=== PATIENT | male | born 2000 | race Caucasian/White ===

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

== ENCOUNTER 2019-01-28 05:39 | Emergency (ER) | payer OTHER | END 2019-01-28 08:20 | disposition home or self-care (01) | LOC: JER 05:39 ==

== ENCOUNTER 2021-03-11 20:19 | Emergency (ER) | payer OTHER ==
[2021-03-11 20:42] VITALS: BP 150/84; PULSE 97; TEMP 98.8; BMI 19.5
[2021-03-13 14:13] LABS: SARS-CoV-2 NAA Detected (Not Detected)
== END 2021-03-11 22:56 | disposition home or self-care (01) ==
LOC: JER 20:19
DX: U07.1 COVID-19 (principal)
CPT/HCPCS: 99283-25; C9803; U0003; U0005

== ENCOUNTER 2022-07-10 11:37 | Emergency (ER) | payer OTHER ==
[2022-07-10 12:24] VITALS: BP 119/72; PULSE 60; RESP 16; TEMP 98.2; BMI 22.7
[2022-07-10] MEDS ORDERED: KETOROLAC TROMETHAMINE 30 MG/1 ML VIAL IM ONE (13:58)
[2022-07-10] MEDS ORDERED: KETOROLAC TROMETHAMINE 30 MG/1 ML VIAL ONE (14:00)
== END 2022-07-10 15:21 | disposition home or self-care (01) ==
LOC: JERFT 11:37
PROC: 3E0233Z Introduction of Anti-inflammatory into Muscle, Percutaneous Approach (ICD-10-PCS; principal; 2022-07-10)
DX: M79.10 Myalgia, unspecified site (principal)
CPT/HCPCS: 71046-TC-FY; 71101-TC-LT-FY; 99284-25